=== PATIENT | male | born 1965 | race Two or more races ===

== ENCOUNTER 2020-12-19 15:34 | Outpatient (CLI) | payer OTHER ==
[~2020-12-19 15:34] MED LIST: EXFORGE 5-3201 EACH PO; POTASSIUM CITR15 MEQ PO
== END 2020-12-19 18:00 | disposition home or self-care (01) ==
LOC: EKG 15:34 → LAB 15:34
PROVIDERS: ATTEND Urology
DX: I10 Essential (primary) hypertension (principal); N20.0 Calculus of kidney

== ENCOUNTER 2020-12-26 05:30 | Day surgery (SDC) | payer OTHER | END 2020-12-26 12:55 | disposition home or self-care (01) | LOC: CIR.AMB 05:30 | PROVIDERS: ATTEND Urology | DX: N13.2 Hydronephrosis with renal and ureteral calculous obstruction (principal); N13.1 Hydronephrosis with ureteral stricture, not elsewhere classified; Z20.822 Contact with and (suspected) exposure to COVID-19 ==

== ENCOUNTER 2021-01-01 11:29 | Outpatient (CLI) | payer OTHER | END 2021-01-01 11:34 | disposition home or self-care (01) | LOC: RAD 11:29 | PROVIDERS: ATTEND Urology | DX: N20.0 Calculus of kidney (principal) ==